=== PATIENT | female | born 1985 ===

== ENCOUNTER 2017-09-03 20:31 | Emergency (ER) | payer MEDICAID, OTHER ==
[2017-09-03 20:31] VITALS: BMI 40.0
[2017-09-03 20:46] VITALS: BP 115/84; PULSE 101; RESP 20; TEMP 97.9; O2SAT 98
[2017-09-03] MEDS ORDERED: Alum-Mag Hydrox-Simethicone Susp (30 mL) PO STA (20:55)
--- NOTE | 2017-09-03 20:58 | C.PDOC ---
History Of Present Illness 31 year old female presents to the ED c/o nausea, vomit, diarrhea since yesterday. Patient reports her 3 sons at home have similar symptoms, patient reports she went to work today but felt weak, she reports her MP started today. Patient reports she has been drinking Gatorade, water and eating bananas and toast. Patient denies SOB, CP, fever, chills. Time Seen by Provider: 09/03/17 20:49 Chief Complaint (Nursing): Abdominal Pain History Per: Patient History/Exam Limitations: no limitations Onset/Duration Of Symptoms: Hrs Current Symptoms Are (Timing): Still Present Location Of Pain/Discomfort: Diffuse Quality Of Discomfort: "Pain" Associated Symptoms: Nausea, Vomiting, Diarrhea Exacerbating Factors: None Alleviating Factors: None Recent travel outside of the [place]: No Additional History Per: Patient Abnormal Vaginal Bleeding: No Last Menstral Period: Started today Past Medical History Reviewed: Historical Data, Nursing Documentation, Vital Signs Vital Signs: Last Vital Signs Temp 97.9 F 09/03/17 20:42 Pulse 101 H 09/03/17 20:42 Resp 20 09/03/17 20:42 BP 115/84 09/03/17 20:42 Pulse Ox 98 09/03/17 21:26 - Medical History PMH: Migraine Surgical History: - [facility] Procedures MONITORING NOS (02/28/15) LOW CERVICAL (02/28/15) Family History: States: Unknown Family Hx - Social History Hx Tobacco Use: Yes Hx Alcohol Use: Yes Hx Substance Use: No - Immunization History Hx Tetanus Toxoid Vaccination: Yes Hx Influenza Vaccination: No Hx Pneumococcal Vaccination: No Review Of Systems Constitutional: Negative for: Fever, Chills Cardiovascular: Negative for: Chest Pain, Palpitations Respiratory: Negative for: Cough, Shortness of Breath Gastrointestinal: Positive for: Vomiting, Abdominal Pain, Diarrhea Genitourinary: Negative for: Dysuria, Vaginal Discharge, Vaginal Bleeding Musculoskeletal: Negative for: Back Pain Skin: Negative for: Rash Neurological: Negative for: Weakness, Numbness, Headache Physical Exam - Physical Exam Appears: Non-toxic, No Acute Distress Skin: Normal Color, Warm, Dry, Other (Plump) Head: Atraumatic, Normacephalic Nose: No Discharge, No Deformity Oral Mucosa: Moist Neck: Normal ROM, Supple Chest: Symmetrical Cardiovascular: Rhythm Regular, No Murmur Respiratory: Normal Breath Sounds, No Rales, No Rhonchi, No Wheezing Gastrointestinal/Abdominal: Soft, No Tenderness Back: No CVA Tenderness Extremity: Normal ROM, No Pedal Edema, No Calf Tenderness, No Swelling Neurological/Psych: Oriented x3, Normal Speech, Normal Cognition Gait: Steady ED Course And Treatment O2 Sat by Pulse Oximetry: 98 (On RA) Pulse Ox Interpretation: Normal Reevaluation Time: 21:30 Reassessment Condition: Improved Medical Decision Making Medical Decision Making: Plan: * Maalox 30 ml PO * Pepcid 20 mg PO * Toradol 60 mg IM * Zofran 4 mg PO gastroenteritis, prob from her kids @ home with same. n/v/d resolved. 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 Disposition Doctor Will See Patient In The: Office Counseled Patient/Family Regarding: Studies Performed, Diagnosis - Disposition Referrals: [facility] [Outside] [place] [facility] [Outside] Disposition: HOME/ ROUTINE Disposition Time: 20:59 Condition: GOOD Additional Instructions: BRAT diet: bananas, white rice, applesauce, toast fluids/Gatorade Strict handwashing @ home to minimize contamination/transmission. Zofran ODT for nausea/vomiting Pepcid 20 mg twice a day for 2 days- lowers stomach acid/irritation due to the viral gastritis. follow-up w our Clinic as needed. Prescriptions: Ondansetron ODT [Zofran ODT] 4 mg PO Q6H PRN #6 odt PRN Reason: Nausea/Vomiting Instructions: Gastroenteritis (DC) Forms: [facility] (Divehi), Work Excuse - Clinical Impression Clinical Impression: Gastroenteritis, Headache - Scribe Statement The provider has reviewed the documentation as recorded by the Scribe Alfredo Juarez All medical record entries made by the Scribe were at my direction and personally dictated by me. I have reviewed the chart and agree that the record accurately reflects my personal performance of the history, physical exam, medical decision making, and the department course for this patient. I have also personally directed, reviewed, and agree with the discharge instructions and disposition.
[2017-09-03] MEDS ORDERED: Aluminum Hydroxide/Magnesium Hydroxide Susp (30 mL) ONE (21:02)
== END 2017-09-03 21:37 | disposition home or self-care (01) ==
LOC: C.ER 20:31
DX: K52.9 Noninfective gastroenteritis and colitis, unspecified (principal); R51 Headache; Z87.891 Personal history of nicotine dependence
CPT/HCPCS: 96372; 99283; J1885

== ENCOUNTER 2017-09-19 15:35 | Emergency (ER) | payer MEDICAID, OTHER ==
[2017-09-19 15:36] VITALS: BMI 40.0
[2017-09-19 15:50] VITALS: O2SAT 100
[2017-09-19] MEDS ORDERED: Sodium Chloride 0.9% 1,000 ML IV ONE (16:22)
[2017-09-19] MEDS ORDERED: DiphenhydrAMINE 50 mg/ml Inj IVP STA (16:22)
[2017-09-19 16:29] LABS: HCG,QUALITATIVE URINE NEGATIVE (NEGATIVE); SQUAMOUS EPITHIAL 8 /hpf (0-5); URINE BACTERIA OCC (<OCC); URINE BILIRUBIN NEGATIVE (NEGATIVE); URINE BLOOD 1+ (NEGATIVE); URINE CLARITY Clear (Clear); URINE COLOR Yellow (YELLOW); URINE GLUCOSE (UA) NORMAL (Normal); URINE LEUKOCYTE ESTERASE NEG Leu/uL (Negative); URINE NITRATE NEGATIVE (NEGATIVE); URINE PROTEIN NEGATIVE (NEGATIVE); URINE UROBILINOGEN NORMAL mg/dL (0.2-1.0)
[2017-09-19] MEDS ORDERED: DiphenhydrAMINE 50 mg/ml Inj ONE (16:40)
--- NOTE | 2017-09-19 17:00 | C.PDOC ---
History Of Present Illness 31 year old female presents to the ER with a complaint of migraine and headache that started 3 days ago associated with nausea, generalized weakness, and light sensitivity. Patient reports the pain is similar to prior episodes, she typically takes excedrin but the pain started today at work and did not have any which prompted ER visit. Denies vomiting, facial droop, slurred speech, change in vision, weakness, or change in sensation. Time Seen by Provider: 09/19/17 15:58 Chief Complaint (Nursing): Headache History Per: Patient History/Exam Limitations: no limitations Onset/Duration Of Symptoms: Days Current Symptoms Are (Timing): Still Present Preceeding Symptoms: None, Known Migraine Symptoms Associated Symptoms: Photophobia, Nausea, Other (Generalized weakness). denies : Blurred Vision, Vomiting, Extremity Weakness Past Medical History Reviewed: Historical Data, Nursing Documentation, Vital Signs Vital Signs: Last Vital Signs Temp 97.0 F L 09/19/17 17:42 Pulse 93 H 09/19/17 17:42 Resp 20 09/19/17 17:42 BP 129/89 09/19/17 17:42 Pulse Ox 100 09/19/17 17:42 - Medical History PMH: Depression, Migraine Surgical History: - [facility] Procedures MONITORING NOS (02/28/15) LOW CERVICAL (02/28/15) Family History: States: Unknown Family Hx - Social History Hx Tobacco Use: Yes Hx Alcohol Use: Yes Hx Substance Use: No - Immunization History Hx Tetanus Toxoid Vaccination: Yes Hx Influenza Vaccination: No Hx Pneumococcal Vaccination: No Review Of Systems Except As Marked, All Systems Reviewed And Found Negative. Constitutional: Positive for: Weakness Gastrointestinal: Positive for: Nausea Neurological: Positive for: Headache, Other (Photophobia) Physical Exam - Physical Exam Appears: Non-toxic, Other (Uncomfortable) Skin: Normal Color, Warm, Dry Head: Atraumatic, Normacephalic Eye(s): bilateral: Normal Inspection, PERRL, EOMI Oral Mucosa: Moist Neck: Normal, Supple Chest: Symmetrical, No Tenderness Cardiovascular: Rhythm Regular Respiratory: Normal Breath Sounds, No Rales, No Rhonchi, No Wheezing Gastrointestinal/Abdominal: Soft, No Tenderness Extremity: Normal ROM (x4) Neurological/Psych: Oriented x3, Normal Speech, Normal Cranial Nerves, Normal Motor, Normal Sensation ED Course And Treatment O2 Sat by Pulse Oximetry: 100 (Room air) Pulse Ox Interpretation: Normal Progress Note: Urinalysis ordered. IV fluids, benadryl, reglan, and toradol administered. Disposition Counseled Patient/Family Regarding: Studies Performed, Diagnosis, Need For Followup, Rx Given - Disposition Referrals: Brayden Crabtree MD [Staff Provider] - [facility] [Outside] Disposition: HOME/ ROUTINE Disposition Time: 17:50 Condition: STABLE Additional Instructions: FOLLOW UP WITH NEUROLOGY WITHIN 1 WEEK USE MEDICATION NEEDED FOR HEADACHE RETURN TO ER IF SYMPTOMS WORSEN Prescriptions: Acetaminophen/Butalbital/Caf [Fioricet] 1 tab PO TID PRN #20 tab PRN Reason: Headache Instructions: Migraine Headache (ED) Forms: for[MD] (Ecuadorean) Print Language: LIBERIAN - POA Present On Arrival: None - Clinical Impression Clinical Impression: Migraine - Scribe Statement The provider has reviewed the documentation as recorded by the Scribe Timothy Moreno All medical record entries made by the Scribe were at my direction and personally dictated by me. I have reviewed the chart and agree that the record accurately reflects my personal performance of the history, physical exam, medical decision making, and the department course for this patient. I have also personally directed, reviewed, and agree with the discharge instructions and disposition.
[2017-09-19 17:43] VITALS: BP 129/89; PULSE 93; RESP 20; TEMP 97
== END 2017-09-19 18:54 | disposition home or self-care (01) ==
LOC: C.ER 15:35
DX: G43.909 Migraine, unspecified, not intractable, without status migrainosus (principal); Z87.891 Personal history of nicotine dependence
CPT/HCPCS: 81001; 84703; 96374; 96375; 99285; J1200; J1885; J2765; J7040

== ENCOUNTER 2018-03-19 11:43 | Emergency (ER) | payer MEDICAID, OTHER ==
[2018-03-19 11:43] VITALS: BMI 40.0
[2018-03-19 12:11] VITALS: RESP 18
--- NOTE | 2018-03-19 13:30 | RAD ---
HISTORY: r/o infiltrate COMPARISON: No prior. TECHNIQUE: Chest PA and lateral FINDINGS: LUNGS: No active pulmonary disease. PLEURA: No significant pleural effusion identified. No pneumothorax apparent. CARDIOVASCULAR: Normal. OSSEOUS STRUCTURES: No significant abnormalities. VISUALIZED UPPER ABDOMEN: Normal. OTHER FINDINGS: None. IMPRESSION: No active disease.
[2018-03-19 13:33] VITALS: BP 132/83; PULSE 83; TEMP 97.8; O2SAT 100
--- NOTE | 2018-03-19 16:59 | C.PDOC ---
History Of Present Illness 32 year old female presents to the emergency department with complaints of dry cough for the past six days. 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 She denies fever, chest pain, or shortness of breath. Chief Complaint (Nursing): Cough, Cold, Congestion History Per: Patient History/Exam Limitations: no limitations Onset/Duration Of Symptoms: Days (6) Current Symptoms Are (Timing): Still Present Associated Symptoms: Cough (dry). denies: Fever, Other (chest pain, shortness of breath) Past Medical History Reviewed: Historical Data, Nursing Documentation, Vital Signs Vital Signs: Last Vital Signs Temp 97.8 F 03/19/18 13:32 Pulse 83 03/19/18 13:32 Resp 18 03/19/18 13:32 BP 132/83 03/19/18 13:32 Pulse Ox 100 03/19/18 17:00 - Medical History PMH: Anxiety, Depression, Migraine Surgical History: - [facility] Procedures MONITORING NOS (02/28/15) LOW CERVICAL (02/28/15) Family History: States: No Known Family Hx - Social History Hx Tobacco Use: Yes Hx Alcohol Use: Yes Hx Substance Use: No - Immunization History Hx Tetanus Toxoid Vaccination: Yes Hx Influenza Vaccination: No Hx Pneumococcal Vaccination: No Review Of Systems Except As Marked, All Systems Reviewed And Found Negative. Constitutional: Negative for: Fever Cardiovascular: Negative for: Chest Pain Respiratory: Positive for: Cough (dry). Negative for: Shortness of Breath Physical Exam - Physical Exam Appears: Non-toxic, No Acute Distress Skin: Warm, Dry Head: Atraumatic, Normacephalic Eye(s): bilateral: Normal Inspection Nose: Normal Oral Mucosa: Moist Throat: Normal, No Erythema, No Exudate Neck: Normal, Supple Chest: Symmetrical Cardiovascular: Rhythm Regular Respiratory: Normal Breath Sounds, No Rales, No Rhonchi, No Wheezing Gastrointestinal/Abdominal: Normal Exam, Soft, No Tenderness Extremity: Normal ROM Neurological/Psych: Oriented x3, Normal Speech, Normal Cognition ED Course And Treatment O2 Sat by Pulse Oximetry: 100 (RA) Pulse Ox Interpretation: Normal - Radiology CXR: Viewed By Me, Read By Radiologist CXR Interpretation: Yes: No Acute Disease. No: Infiltrates Progress Note: Plan: CXR Two Views Disposition - Disposition Referrals: [facility], [Non-Staff] - Disposition: HOME/ ROUTINE Disposition Time: 13:15 Condition: GOOD Additional Instructions: BAM CORREIA, thank you for letting us take care of you today. Your provider was Rd Frank DO and you were treated for COUGH/CONGESTION. The emergency medical care you received today was directed at your acute symptoms. If you were prescribed any medication, please fill it and take as directed. It may take several days for your symptoms to resolve. Return to the Emergency Department if your symptoms worsen, do not improve, or if you have any other problems. Please contact your doctor or call one of the physicians/clinics you have been referred to that are listed on the Patient Visit Information form that is included in your discharge packet. Bring any paperwork you were given at discharge with you along with any medications you are taking to your follow up visit. Our treatment cannot replace ongoing medical care by a primary care provider outside of the emergency department. Thank you for allowing the [facility] team to be part of your care today. Follow up with your primary care doctor in 3-4 days for re-evaluation and further management. Instructions: Upper Respiratory Infection (ED) Forms: [employer] (Honduran) - Clinical Impression Clinical Impression: Upper respiratory infection - Scribe Statement The provider has reviewed the documentation as recorded by the Scribe (Gamal Merritt) Provider Attestation: All medical record entries made by the Scribe were at my direction and personally dictated by me. I have reviewed the chart and agree that the record accurately reflects my personal performance of the history, physical exam, medical decision making, and the department course for this patient. I have also personally directed, reviewed, and agree with the discharge instructions and disposition.
== END 2018-03-19 13:33 | disposition home or self-care (01) ==
LOC: C.ER 11:43
DX: J06.9 Acute upper respiratory infection, unspecified (principal)